=== PATIENT | male | born 1950 | race African-American/Black ===

== ENCOUNTER 2022-07-26 19:03 | Inpatient (IN) | payer OTHER, MEDICARE ==
[~2022-07-26] VITALS: Ht 182.9 cm; Wt 72.1 kg
--- NOTE | 2022-07-26 19:10 | NUR ---
PATIENT HAD WITNESSED SYNCOPAL EPISODE X 30 SECONDS AFTER FAMILY CALLING FROM HOME FOR PATIENT BEING LETHARGIC. GLUCOSE 92 PAPER GOODS MACHINE SET UP OPERATOR, PATIENT A/OX4 UPON ARRIVAL TO ED. 20 G PLACED IN LEFT AC WITH 500ML NS BOLUS PAPER GOODS MACHINE SET UP OPERATOR.
[2022-07-26 19:11] VITALS: BP_SYST 111
--- NOTE | 2022-07-26 19:16 | NUR ---
PATIENT TRANSFERRED TO BED [address] LYONS. REPORT GIVEN TO OSIEL SIMS. PATIENT PLACED ON MONITOR WITHOUT ISSUE.
--- NOTE | 2022-07-26 19:52 | NUR ---
pt aa&ox4. afebrile, nad. denies pain, denies chest pain. able to give hx of DM, HTN, R KIDNEY TRANSPLANT FR 2004. PT DOESNT RECALL HOW HE PASSED OUT. CONNECTED TO POWDER NIPPER. SAFE & HAZARD FREE ENVIRONMENT PROVIDED. FALL PRECAUTIONS IMPLEMENTED. WILL CON'T TO MONITOR.
[2022-07-26 20:18] LABS: BASOPHILS % (AUTO) 0.6 % (0.0-2.0); EOSINOPHILS # (AUTO) 0.1 K/uL (0.0-0.4); EOSINOPHILS % (AUTO) 1.7 % (0.0-4.0); HEMATOCRIT 24.4 % (36-54); LYMPHOCYTES # (AUTO) 0.6 K/uL (1.0-5.5); LYMPHOCYTES % (AUTO) 17.4 % (20.5-51.5); MEAN CORPUSCULAR VOLUME 89 fL (79.0-98.0); MONOCYTES # (AUTO) 0.4 K/uL (0.0-1.0); NEUTROPHILS # (AUTO) 2.2 K/uL (1.8-7.7); NEUTROPHILS % (AUTO) 67.3 % (40.0-70.0); PLATELET COUNT (AUTO) 148 K/uL (130-430); RED BLOOD CELL COUNT(AUTO) 2.74 MIL/uL (4.2-6.2); RED CELL DISTRIBUTION WIDTH 16.6 % (9.0-15.0); WHITE BLOOD COUNT (AUTO) 3.2 K/uL (4.8-10.8)
--- NOTE | 2022-07-26 20:39 | NUR ---
COVID SWAB COLLECTED AND SENT TO LAB.
[2022-07-26 20:43] LABS: ANION GAP 11 (5-15); CALCIUM 8.2 mg/dL (8.4-11.0); CHLORIDE 101 mmol/L (98-107); CREATININE 3.13 mg/dL (0.55-1.30); GLUCOSE 111 mg/dL (70-99); POTASSIUM 3.8 mmol/L (3.5-5.1); UREA NITROGEN, BLOOD 39 mg/dL (8-21)
--- NOTE | 2022-07-26 20:43 | NUR ---
ER at bedside examining patient.
--- NOTE | 2022-07-26 20:43 | NUR ---
# 18 gauge angiocath placed to R IJ BY DR. LYONS. Use of asceptic technique. Opsite placed over site. Blood return noted. Flushed with 10 cc of normal saline. No evidence of infiltration noted. Patient tolerated well.
[2022-07-26] MEDS ORDERED: NACL 0.9% 1,000 ML IV ONE ×2 (20:45→21:15)
[2022-07-26 20:55] LABS: ALANINE AMINOTRANSFERASE 14 U/L (12-78); ALBUMIN 1.6 g/dL (3.4-4.8); ASPARTATE AMINOTRANSFERASE 24 U/L (10-37); TOTAL BILIRUBIN 0.4 mg/dL (0.0-1.0)
--- NOTE | 2022-07-26 21:13 | NUR ---
PER PT'S , PT TOOK N3 NANTIHYPERTENSIVE MEDS AROUND 3PM: METOPROLOL 50MG PO LOSARTAN 30MG PO NIFEDIPINE 30MG PO
--- NOTE | 2022-07-26 21:28 | NUR ---
ADMITTING DOCTOR, DR. HODGSON AT BEDSIDE ASSESSING PATIENT AND SPEAKING TO PATIENT AND FAMILY.
[2022-07-26] MEDS ORDERED: D5NS 1,000 ML IV ONE (21:30)
[2022-07-26] MEDS ORDERED: MUPIROCIN 2% TOPICAL OINTMENT 22 GM NS PRN (21:30)
[2022-07-26] MEDS ORDERED: ACETAMINOPHEN 325 MG TABLET PO PRN (21:30)
[2022-07-26] MEDS ORDERED: DEXTROSE 50% JECT 50 ML DISP.SYRIN IVP PRN (21:30)
[2022-07-26] MEDS ORDERED: MAGNESIUM SULFATE 50 ML IV PRN (21:30)
[2022-07-26] MEDS ORDERED: NOREPINEPHRINE BITARTRATE 4 MG in NS 246 ML IV ONE (21:30)
[2022-07-26] MEDS ORDERED: INSULIN LISPRO SLIDING SCALE 100 UNITS/ML, 3 ML VIAL (humaLOG) SUBCUT PRN (21:30)
[2022-07-26] MEDS ORDERED: ZOLPIDEM TARTRATE 5 MG TABLET PO PRN (21:30)
[2022-07-26] MEDS ORDERED: DOCUSATE SODIUM 100 MG CAPSULE PO PRN (21:30)
[2022-07-26] MEDS ORDERED: LORazepam 2 MG/ML VIAL IVP PRN (21:30)
[2022-07-26] MEDS ORDERED: POTASSIUM CHLORIDE 20 MEQ TAB.PRT.SR PO PRN (21:30)
[2022-07-26] MEDS ORDERED: ONDANSETRON HCL 4 MG/2 ML VIAL IVP PRN (21:30)
[2022-07-26] MEDS ORDERED: MORPHINE 2 MG/ML INJ. SYRINGE IVP PRN ×2 (21:30)
--- NOTE | 2022-07-26 21:30 | NUR ---
[facility] SWAB OBTAINED AND SENT TO LAB LABELED
--- NOTE | 2022-07-26 21:33 | NUR ---
REPORT GIVEN TO OSIEL SIMS
--- NOTE | 2022-07-26 21:35 | NUR ---
Dr. Ball at bedside
[2022-07-26] MEDS ORDERED: METO50TA16 PO (21:38)
[2022-07-26] MEDS ORDERED: NIFE20CA PO (21:38)
[2022-07-26] MEDS ORDERED: LOSA25TA18 PO (21:38)
--- NOTE | 2022-07-26 21:45 | NUR ---
Admit bed requested Patient will be admitted to care of [REMA]. Admitted to [ICU] unit. Diagnosis [HYPOTENSIVE SHOCK] Inpatient (Yes or No) [YES] Observation (Yes or No) [NO] Orientation concerns or request close to nursing station (Yes or No) [NO] Covid Status [PEND] On vent or bipap [NO] Isolation requirements [NO] Needs a sitter [NO] From Home (Yes or if No enter name of facility) [YES] Requires Dialysis (Yes or No) [NO] Med Rec Completed (Yes of No) [NO]
[2022-07-26] MEDS ORDERED: NOREPINEPHRINE 4 MG/4 ML VIAL IV ONE (21:58)
[2022-07-26] MEDS ORDERED: PIPERACILLIN/TAZOBACTAM 2.25 GM in NS 50 ML IV SCH (22:00)
--- NOTE | 2022-07-26 22:00 | NUR ---
Medication reconciliation completed with information provided by PATIENT. Any prior medication reconciliation on file was reviewed and corrected.
--- NOTE | 2022-07-27 00:15 | NUR ---
S/W DR. HODGSON- UPDATED ON PT CONDITION, NO PRESSORS INITIATED, BP'S IN 120'S. TORB TO DOWNGRADE TO TELEMETRY
[2022-07-27] MEDS ORDERED: PIPERACILLIN/TAZOBACTAM 2.25 GM VIAL IV ONE (00:24)
--- NOTE | 2022-07-27 00:31 | NUR ---
Admit bed requested Patient will be admitted to care of [REMA]. Admitted to [TELE] unit. Diagnosis [HYPOTENSIVE SHOCK] Inpatient (Yes or No) [YES] Observation (Yes or No) [NO] Orientation concerns or request close to nursing station (Yes or No) [NO] Covid Status [NEG] On vent or bipap [NO] Isolation requirements [NO] Needs a sitter [NO] From Home (Yes or if No enter name of facility) [YES] Requires Dialysis (Yes or No) [NO] Med Rec Completed (Yes of No) [NO]
[2022-07-27] MEDS: PIPERACILLIN/TAZOBACTAM 2.25 GM in NS 50 ML IV SCH ×3 (00:32→21:59)
--- NOTE | 2022-07-27 01:42 | NUR ---
Transfer to 103B via ACLS protocol. Licensed nurse present. IV present no signs or symptoms of infiltration. REPORT GIVEN TO LACI CARTAGENA
--- NOTE | 2022-07-27 01:45 | NUR ---
ADMISSION NOTE Received patient from ER via gurney. Patient admitted with diagnosis of HYPOTENSION SHOCK. Patient is awake, alert, oriented X 4. Patient oriented to hospital room, call light, toileting, pain management and safety-teach back done. Patient informed that that their room number is 103B. Personal belongings checked and Belongings List documented. Call light within reach.
[2022-07-27 02:59] VITALS: BP_SYST 116
[2022-07-27 06:57] LABS: BASOPHILS % (AUTO) 0.4 % (0.0-2.0); EOSINOPHILS % (AUTO) 0.5 % (0.0-4.0); HEMATOCRIT 24.8 % (36-54); LYMPHOCYTES # (AUTO) 0.4 K/uL (1.0-5.5); LYMPHOCYTES % (AUTO) 13.4 % (20.5-51.5); MEAN CORPUSCULAR VOLUME 90 fL (79.0-98.0); MONOCYTES # (AUTO) 0.3 K/uL (0.0-1.0); MONOCYTES % (AUTO) 10.8 % (1.7-9.3); NEUTROPHILS % (AUTO) 74.9 % (40.0-70.0); PLATELET COUNT (AUTO) 145 K/uL (130-430); RED BLOOD CELL COUNT(AUTO) 2.77 MIL/uL (4.2-6.2); RED CELL DISTRIBUTION WIDTH 16.8 % (9.0-15.0); WHITE BLOOD COUNT (AUTO) 2.7 K/uL (4.8-10.8)
[2022-07-27 07:15] LABS: ANION GAP 12 (5-15); CALCIUM 8.1 mg/dL (8.4-11.0); CHLORIDE 101 mmol/L (98-107); CREATININE 3.04 mg/dL (0.55-1.30); GLUCOSE 141 mg/dL (70-99); POTASSIUM 3.9 mmol/L (3.5-5.1); UREA NITROGEN, BLOOD 39 mg/dL (8-21)
--- NOTE | 2022-07-27 07:20 | NUR ---
OPENING NOTE PT IN BED RESPIRATIONS REGULAR NON-LABORED WITH O2 4L VIA NC. IV RUNNING ORDERED WITH IV SITE REMAIN INTACT AND CLEAN, NO S/S OF IV RELATED COMPLICATION NOTED. DENIES ANY PAIN OR DISCOMFORT. URINAL AT BEDSIDE NOTED. SAFETY PRECAUTION OBSERVED, CALL LIGHT WITHIN REACH. WILL CONTINUE TO MONITOR.
--- NOTE | 2022-07-27 07:30 | NUR ---
THIS RN TO ENDORSE HOME MEDICATIONS THAT WILL BRING TODAY - PATIENT STATES HE USES [facility] IN [facility] ( [facility]). NOTE eMAR FOR IV ABT PLEASE REQUEST FROM PHARMACY.
[2022-07-27 07:47] LABS: PROTHROMBIN TIME 10.4 SECS (9.5-12.5)
[2022-07-27 08:00] VITALS: BP_SYST 142
[2022-07-27] MEDS: HEPARIN SODIUM,PORCINE 5,000 UNITS/ML VIAL SUBCUT SCH ×2 (09:23→21:41)
[2022-07-27] MEDS ORDERED: ATORVASTATIN 20 MG TABLET PO ONE (09:30)
[2022-07-27] MEDS ORDERED: CITALOPRAM HYDROBROMIDE 20 MG TABLET PO ONE (09:30)
[2022-07-27] MEDS ORDERED: TACROLIMUS ANHYDROUS 1 MG CAPSULE (PROGRAF) PO ONE (09:30)
[2022-07-27] MEDS ORDERED: mycophenolate mofetiL 250 MG CAPSULE PO ONE (09:30)
--- NOTE | 2022-07-27 09:30 | NUR ---
HOME MEDICATION DR HODGSON AND HIS STUDENTS WERE ABLE TO GET HOLD OF , RECEIVED THE PT'S HOME MEDICATION. RECEIVED NEW MEDICATION ORDER.
[2022-07-27 09:39] LABS: ALBUMIN 1.5 g/dL (3.4-4.8); BILIRUBIN,DIRECT 0.1 mg/dL (0.0-0.3); THYROID STIMULATING HORMONE 6.31 uIu/mL (0.36-3.74); TOTAL BILIRUBIN 0.3 mg/dL (0.0-1.0)
--- NOTE | 2022-07-27 10:00 | NUR ---
AMBULATION PT AMBULATES WITH ASSISTANCE TO BATHROOM. Addendum: 07/27/22 at 1125 by Julissa Urbano RN DISREGARD CHARLES NOTES. WRONG PT.
--- NOTE | 2022-07-27 11:30 | NUR ---
REMOVED RIJ REMOVED RIJ DUE TO LEAKING. CATHETER REMOVED, NO ACTIVE BLEEDING NOTED. COVERED WITH DRY DRESSING. PT DENIES ANY PAIN OR DISCOMFORT AT THE SITE. WILL CONTINUE TO MONITOR.
[2022-07-27 11:37] VITALS: BP_SYST 153
--- NOTE | 2022-07-27 14:03 | NUR ---
AMBULATION WITH ASSISTANCE PT AMBULATED WITH NURSE'S ASSISTANCE TO BATHROOM.
[2022-07-27 14:41] VITALS: BP_SYST 117; BP_SYST 132; BP_SYST 145
--- NOTE | 2022-07-27 14:45 | NUR ---
PT FELL PT HAS ASSISTED FALL AT BATHROOM. NO BLEEDING NO INJURIES NOTED. PT DENIES ANY PAIN OR DISCOMFORT NOTED. PT'S WAS AT THE ROOM. DR. REMA CORTEZ. Addendum: 07/27/22 at 1838 by Julissa Urbano RN SEE POST FALL ASSESSMENT
--- NOTE | 2022-07-27 15:15 | NUR ---
RECEIVED NEW ORDER FROM DR. HODGSON.
[2022-07-27 15:22] VITALS: BP_SYST 111
--- NOTE | 2022-07-27 16:00 | NUR ---
WENT TO OR PT WENT TO OR FOR SURGERY WITH Addendum: 07/27/22 at 1738 by Julissa Urbano RN DISREGARD PREVIOUS NOTE. WRONG PT
--- NOTE | 2022-07-27 16:00 | NUR ---
NOTES PT IN BED, RESTING WITH BREATHING EVEN AND UNLABORED. DENIES ANY PAIN OR DISCOMFORT. IV REMAIN PATENT AND INTACT. BED IS AT LOW AND LOCKED. NON-SKIDDED SOCKS ON. CALL LIGHT WITHIN REACH. SAFETY PRECAUTION OBSERVED.
--- NOTE | 2022-07-27 18:40 | NUR ---
CLOSING NOTE PT IN BED BREATHING EVEN AND NON-LABORED. DENIES ANY PAIN OR DISCOMFORT. IV SITE KEPT PATENT. NO S/S INFILTRATION OR INFECTION NOTED. BED IS LOCKED AND AT LOWEST POSITION. ENCOURAGED TO USE CALL LIGHT FOR ASSISTANCE. SAFETY PRECAUTION IN PLACED.
[2022-07-27 20:00] VITALS: BP_SYST 136
[2022-07-27] MEDS: TACROLIMUS ANHYDROUS 1 MG CAPSULE (PROGRAF) PO SCH (21:38)
[2022-07-27] MEDS: mycophenolate mofetiL 250 MG CAPSULE PO SCH (21:39)
[2022-07-28 00:33] VITALS: BP_SYST 145
--- NOTE | 2022-07-28 06:00 | NUR ---
--PT CONT. TO BE A/OX4. IV I/P VIA LEFT FA H.L. PT HAS BEEN ON BEDREST. PT DENIES ANY PAIN. PT ALSO DENIES ANY DIZZINESS. PT HAS BEEN SLEEPING OFF AND ON. PT HAD ELEVATED TROP. LEVEL OF 25,000. (CARDIO MD INFORMED)-NO NEW ORDERS. PT HAS BEEN IN A.FLUTTER WITH OCCASS. PVC. PT HAS ATTEMPTED TO VOID THROUGH-OUT THE NIGHT BUT HAS NOT BEEN ABLE TO VOID. INFORMED AND STATED TO CONTACT THE RENALMD. DR. ROB CONTACT AND HAS BEEN IN THIS MORNING TO EVAL PT. BLADDER SCAN ORDERED WITH PARAMETER FOR F/C IF URINE IS >200CC. PT'S BS THIS AM IS 78. PT GIVEN O.J. PT ENDORSED TO OSIEL STEWART IN STABLE BUT GUARDED COND. BRAYAN CARTAGENA
[2022-07-28 07:40] VITALS: BP_SYST 149
--- NOTE | 2022-07-28 07:40 | NUR ---
OPEN NOTE Received report from nightshift nurse. Patient is laying in bed resting. Patient A/O x 4, wolof speaking. Per patient at this time no pain, no sob, no distress. IV to RAC 20 g patent on SL. Patient on Room air saturations at 99%. Will monitor UA output. All needs met at this time. Safety checks in place, bed is locked in lowest position, will continue to monitor.
[2022-07-28 07:43] LABS: BASOPHILS % (AUTO) 0.5 % (0.0-2.0); EOSINOPHILS # (AUTO) 0.1 K/uL (0.0-0.4); EOSINOPHILS % (AUTO) 3.6 % (0.0-4.0); LYMPHOCYTES # (AUTO) 0.5 K/uL (1.0-5.5); LYMPHOCYTES % (AUTO) 19.2 % (20.5-51.5); MEAN CORPUSCULAR VOLUME 89 fL (79.0-98.0); MONOCYTES # (AUTO) 0.4 K/uL (0.0-1.0); MONOCYTES % (AUTO) 15.6 % (1.7-9.3); NEUTROPHILS # (AUTO) 1.6 K/uL (1.8-7.7); NEUTROPHILS % (AUTO) 61.1 % (40.0-70.0); PLATELET COUNT (AUTO) 120 K/uL (130-430); RED BLOOD CELL COUNT(AUTO) 2.44 MIL/uL (4.2-6.2); RED CELL DISTRIBUTION WIDTH 16.8 % (9.0-15.0); WHITE BLOOD COUNT (AUTO) 2.6 K/uL (4.8-10.8)
[2022-07-28] MEDS ORDERED: NACL 0.9% 1,000 ML IV SCH (08:00)
[2022-07-28 08:27] LABS: ANION GAP 12 (5-15); CALCIUM 7.8 mg/dL (8.4-11.0); CHLORIDE 101 mmol/L (98-107); CREATININE 3.11 mg/dL (0.55-1.30); GLUCOSE 81 mg/dL (70-99); POTASSIUM 3.8 mmol/L (3.5-5.1); UREA NITROGEN, BLOOD 38 mg/dL (8-21)
[2022-07-28] MEDS: CITALOPRAM HYDROBROMIDE 20 MG TABLET PO SCH (09:09)
[2022-07-28] MEDS: ATORVASTATIN 20 MG TABLET PO SCH (09:10)
[2022-07-28] MEDS: TACROLIMUS ANHYDROUS 1 MG CAPSULE (PROGRAF) PO SCH ×2 (09:11→21:43)
[2022-07-28] MEDS: mycophenolate mofetiL 250 MG CAPSULE PO SCH ×2 (09:12→21:43)
[2022-07-28] MEDS: HEPARIN SODIUM,PORCINE 5,000 UNITS/ML VIAL SUBCUT SCH ×2 (09:14→22:04)
--- NOTE | 2022-07-28 09:43 | NUR ---
CONSULTATION PAGED/CALLED Reason for Consultation: int dizziness Person Who was Notified: thong Consulting Physician: sunshine chan Ordering Physician: gorge sanchez
[2022-07-28] MEDS ORDERED: CARVEDILOL 6.25 MG TABLET (COREG) PO ONE (10:00)
[2022-07-28 10:21] LABS: HEMATOCRIT 21.7 % (36-54)
--- NOTE | 2022-07-28 10:40 | NUR ---
MD CORTEZ Spoke with MD Ball regarding Hematcrit. New orders given. Also stated that if Hemoglobin comes back below 7 to give 1 unit of blood. Awaiting Hemoglobin level.
[2022-07-28] MEDS: D5/0.45 NS 1,000 ML IV SCH (11:23)
[2022-07-28 11:26] VITALS: BP_SYST 138
[2022-07-28 11:34] LABS: TOTAL IRON BIND. CAPACITY 108 ug/dL (250-450)
--- NOTE | 2022-07-28 12:05 | NUR ---
PATIENT ROUNDS Patient is laying in bed resting. No pain, no sob, no distress. Urinated 150ccs before lunch. Will do bladder scan after patient finishes lunch. All needs met at this time. Safety checks in place, bed is locked in lowest position, will continue to monitor.
--- NOTE | 2022-07-28 12:36 | NUR ---
PT ATTEMPTED TWO TIMES TO INITIATE TREATMENT. PATIENT DECLINED, FIRST TIME STATING HE HAS BUSINESS TO ATTEND TO ON THE PHONE AND REQUESTING PT TO RETURN, SECOND TIME STATING HE IS TOO TIRED/FATIGUED AND JUST MEDICATED
--- NOTE | 2022-07-28 13:00 | NUR ---
Bladder Scan Scanned patient and noted that he had less then 80cc of urine in bladder.
--- NOTE | 2022-07-28 14:01 | NUR ---
MRI MRI machine not working properly. automotive exhaust emissions technician will attempt again tomorrow. Patient was made aware.
[2022-07-28] MEDS: PIPERACILLIN/TAZOBACTAM 2.25 GM in NS 50 ML IV SCH ×3 (14:49→22:07)
--- NOTE | 2022-07-28 15:00 | NUR ---
MRI MRI will be able to be done today. Patient was picked up and sent over to Radiology.
[2022-07-28 15:28] VITALS: BP_SYST 149
--- NOTE | 2022-07-28 15:45 | NUR ---
PATIENT ROUNDS Patient is back from MRI. Placed him back in bed and reconnected him to tele-monitor. No pain, no sob, no distress. Urinated 100ccs of urine again. All needs met at this time. Safety checks in place, bed is locked in lowest position, will continue to monitor.
--- NOTE | 2022-07-28 18:32 | NUR ---
CLOSING NOTE Patient is laying in eating dinner. Patient A/O x 4, [place]er speaking. No pain, no sob, no distress. IV to RAC 20 g patent on infusion pump. Patient on Room air saturations at 99%. Bladder scan q6 hours, patient has been urinating every 2-3 hours 100-200cc of yellow urine in urinal. All needs met at this time. Safety checks in place, bed is locked in lowest position, will endorse to nightshift nurse.
[2022-07-28 20:00] VITALS: BP_SYST 163
[2022-07-28] MEDS ORDERED: CARVEDILOL 6.25 MG TABLET (COREG) PO SCH (21:00)
[2022-07-29 04:00] VITALS: BP_SYST 147
[2022-07-29] MEDS: PIPERACILLIN/TAZOBACTAM 2.25 GM in NS 50 ML IV SCH ×3 (06:45→21:53)
[2022-07-29] MEDS: D5/0.45 NS 1,000 ML IV SCH ×2 (06:47→23:09)
--- NOTE | 2022-07-29 07:00 | NUR ---
BLADDER SCAN NOT NEEDED PM Patient did not have a bladder scan during the table games shift manager. Pt had a total input of 835 mL and total output of 450 mL. Pt stated no urge or difficulty urinating and sleep without difficulty throughout the night.
[2022-07-29 07:28] LABS: ALANINE AMINOTRANSFERASE 14 U/L (12-78); ALBUMIN 1.1 g/dL (3.4-4.8); ANION GAP 9 (5-15); ASPARTATE AMINOTRANSFERASE 34 U/L (10-37); CALCIUM 7.6 mg/dL (8.4-11.0); CHLORIDE 99 mmol/L (98-107); CREATININE 3.07 mg/dL (0.55-1.30); GLUCOSE 136 mg/dL (70-99); TOTAL BILIRUBIN 0.3 mg/dL (0.0-1.0); UREA NITROGEN, BLOOD 36 mg/dL (8-21)
[2022-07-29 07:30] VITALS: BP_SYST 137
--- NOTE | 2022-07-29 07:30 | NUR ---
OPEN NOTE Received report from nightshift nurse. Patient is laying in bed resting. Patient A/O x 4, Malay speaking. Per patient at this time no pain, no sob, no distress. IV to RAC 20 g patent on SL. Patient on Room air saturations at 99%. Will monitor UA output and do bladder scan. All needs met at this time. Safety checks in place, bed is locked in lowest position, will continue to monitor.
[2022-07-29 08:32] LABS: BASOPHILS % (AUTO) 0.1 % (0.0-2.0); EOSINOPHILS # (AUTO) 0.1 K/uL (0.0-0.4); EOSINOPHILS % (AUTO) 4.2 % (0.0-4.0); LYMPHOCYTES # (AUTO) 0.5 K/uL (1.0-5.5); MEAN CORPUSCULAR VOLUME 88 fL (79.0-98.0); MONOCYTES # (AUTO) 0.4 K/uL (0.0-1.0); NEUTROPHILS # (AUTO) 1.6 K/uL (1.8-7.7); NEUTROPHILS % (AUTO) 59.7 % (40.0-70.0); PLATELET COUNT (AUTO) 109 K/uL (130-430); RED BLOOD CELL COUNT(AUTO) 2.21 MIL/uL (4.2-6.2); RED CELL DISTRIBUTION WIDTH 16.7 % (9.0-15.0); WHITE BLOOD COUNT (AUTO) 2.7 K/uL (4.8-10.8)
[2022-07-29 08:59] LABS: HEMATOCRIT 19.6 % (36-54)
[2022-07-29] MEDS: CARVEDILOL 12.5 MG TABLET (COREG) PO SCH ×2 (09:14→21:54)
[2022-07-29] MEDS: CITALOPRAM HYDROBROMIDE 20 MG TABLET PO SCH (09:15)
[2022-07-29] MEDS: TACROLIMUS ANHYDROUS 1 MG CAPSULE (PROGRAF) PO SCH ×2 (09:15→21:54)
[2022-07-29] MEDS: ATORVASTATIN 20 MG TABLET PO SCH (09:15)
[2022-07-29] MEDS: mycophenolate mofetiL 250 MG CAPSULE PO SCH ×2 (09:15→21:54)
--- NOTE | 2022-07-29 09:15 | NUR ---
CONSULTATION PAGED/CALLED Reason for Consultation: [] severe carotid stenosis Person Who was Notified: [] RAFITA/VERO Consulting Physician: [] DR KNUTSON, N Carrot Buncher Specialty: [] VASCULAR Ordering Physician: [] DR HODGSON
[2022-07-29] MEDS: HEPARIN SODIUM,PORCINE 5,000 UNITS/ML VIAL SUBCUT SCH ×2 (09:18→21:56)
[2022-07-29 10:52] LABS: BILIRUBIN,URINE NEGATIVE (NEGATIVE); BLOOD, URINE 2+ (NEGATIVE); CLARITY/URINE CLEAR (CLEAR); COLOR,URINE YELLOW (YELLOW); GLUCOSE,URINE NEGATIVE (NEGATIVE); KETONES,URINE NEGATIVE (NEGATIVE); LEUKOCYTE ESTERASE ,URINE NEGATIVE (NEGATIVE); NITRITE, URINE NEGATIVE (NEGATIVE); PROTEIN URINE 2+ (NEGATIVE); UROBILINOGEN,URINE 0.2 (0.2-1.0)
--- NOTE | 2022-07-29 11:39 | NUR ---
Made a F/U call to VASCULAR MD DR KNUTSON. Spoke to Tabitha.
[2022-07-29 11:40] VITALS: BP_SYST 143
--- NOTE | 2022-07-29 11:40 | NUR ---
Discharge Planning: DCP faxed pt referral to [facility] [phone] PATRICKP to follow up. Addendum: 07/29/22 at 1240 by Kaylin Carrion DP patient accepted to [facility] [phone] RM 15A DCP made CM aware.
--- NOTE | 2022-07-29 12:00 | NUR ---
PATIENT ROUNDS Patient is laying in bed resting. No pain, no sob, no distress. Urinated 200ccs before lunch. All needs met at this time. Safety checks in place, bed is locked in lowest position, will continue to monitor.
[2022-07-29 12:14] LABS: WBC,URINE 0-3 /HPF (0-3)
[2022-07-29 12:15] LABS: BACTERIA,URINE FEW /HPF (None Seen)
--- NOTE | 2022-07-29 12:30 | NUR ---
DISCHARGE PLANNING Order for dc planning for snf. Called & spoke with and states agrees if pt agrees, will look up SNF's, informed had choices and states will look up Medicare.gov. Spoke with pt at bedside aware of plan for SNF has discussed with MD and . Is still contemplating whether agrees with SNF or not but if does then #1 choice is [facility]. States is waiting to speak with Cardiovascular Surgeon before decides. Would like someone from [facility] to call & speak with . Informed Carolin at [facility] to call & speak with . Per dc financial planner, pt accepted at [facility].
--- NOTE | 2022-07-29 14:22 | NUR ---
DR KNUTSON S/W DR KNUTSON . PER MD, HE WILL COME SEE PATIENT TODAY OR TOMORROW
--- NOTE | 2022-07-29 15:19 | NUR ---
Blood Transfusion Consent Patient stated he would like to speak to MD Medina Prior to signing the consent of the blood transfusion. Dr Ball was paged and awaiting his call back.
[2022-07-29 15:28] VITALS: BP_SYST 147
--- NOTE | 2022-07-29 16:10 | NUR ---
PATIENT ROUNDS Patient is laying in bed resting. No pain, no sob, no distress. Urinated 100ccs before lunch. All needs met at this time. Safety checks in place, bed is locked in lowest position, will continue to monitor
--- NOTE | 2022-07-29 17:27 | NUR ---
BLOOD TRANSFUSION CONSENT Spoke with patient again regarding consent and he stated he is not ready to consent. He stated he will wait to discuss with MD.
--- NOTE | 2022-07-29 17:30 | NUR ---
Dietitian Recommendations * CCHO, Renal diet, Nepro BID (ONS yields 840 kcal/day, 38 gm protein/day) * Encourage increase PO intakes * RD provided diabetic and renal diet education LP, MS, RD Please refer to Nutrition Assessment for details. Addendum: 07/30/22 at [address] Amended: Links added.
--- NOTE | 2022-07-29 18:52 | NUR ---
CLOSING NOTE Patient is laying in eating dinner. Patient A/O x 4, Burundian speaking. No pain, no sob, no distress. IV to RAC 20 g patent on infusion pump. Patient on Room air saturations at 99%. Still refusing blood transfusion consent until MD speaks to him. MD Paged. patient has been urinating every 2-3 hours 100-200cc of yellow urine in urinal. All needs met at this time. Safety checks in place, bed is locked in lowest position, will endorse to nightshift nurse.
--- NOTE | 2022-07-29 19:06 | NUR ---
Call from Received a call from MD Mattson to inform me he will see patient tomorrow in the am. Report given to patient.
[2022-07-29 19:20] VITALS: BP_SYST 160
--- NOTE | 2022-07-29 19:20 | NUR ---
PM ASSESSMENT; -Pt is a/ox 4, resting in bed comfortably. Pt denies any chest pain,pain,sob,or any acute distress. Discussed poc,all safety measures, pt verbalized understanding with good return demonstration of how to use call light for assistance.Bed alarmed, side rails x3, call light w/inreach. Fall precaution in place.Cont to monitor pt.
--- NOTE | 2022-07-29 22:05 | NUR ---
ROUNDS; -Pt awakes,resting in bed comfortably. Gave routine meds, pt tolerated well. No s/s any acute distress noted. IVF infusing well, no s/s any infiltration noted. Call light w/in reach. Cont to monitor pt.
[2022-07-29] MEDS: FERROUS GLUCONATE 324 MG TABLET PO SCH (23:09)
--- NOTE | 2022-07-30 01:06 | NUR ---
ROUNDS; -Pt is asleep with sheet covered his face. No s/s any acute distress noted. IVF infusing well, no s/s any infiltration noted. Call light w/in reach. Cont to monitor pt.
[2022-07-30 03:05] VITALS: BP_SYST 146
[2022-07-30] MEDS: PIPERACILLIN/TAZOBACTAM 2.25 GM in NS 50 ML IV SCH (06:09)
--- NOTE | 2022-07-30 07:15 | NUR ---
CLOSING NOTES; Pt is resting in bed comfortably. Pt denies any chest pain,pain,sob,or any acute distress. IVF infusing well, IV site patent drsg cdi. Bed alarmed, side rails x3, call light w/in reach. Fall precaution in place. Will endorse to next nurse to cont care.
--- NOTE | 2022-07-30 07:23 | NUR ---
PHYSICAL THERAPY CO-SIGN The Physical Therapy Progress Notes documented by Motor Vehicle Or Caravan Salesperson have been reviewed. Reviewed/Co-Signed by: Patricio Ambrose Documentation Done by: KRISS SLOAN PTA Addendum: 07/30/22 at 0723 by Patricio Ambrose PT Amended: Links added.
--- NOTE | 2022-07-30 07:30 | NUR ---
rn opening note report was endorsed by night nurse. patient appears to be resting with blanket covering his face, visible breathing. patient shows no signs of any distress, no other needs at this time.
[2022-07-30 08:00] VITALS: BP_SYST 110
[2022-07-30 08:13] LABS: BASOPHILS % (AUTO) 0.5 % (0.0-2.0); EOSINOPHILS # (AUTO) 0.1 K/uL (0.0-0.4); EOSINOPHILS % (AUTO) 5.1 % (0.0-4.0); LYMPHOCYTES # (AUTO) 0.6 K/uL (1.0-5.5); LYMPHOCYTES % (AUTO) 26.5 % (20.5-51.5); MEAN CORPUSCULAR VOLUME 89 fL (79.0-98.0); MONOCYTES # (AUTO) 0.4 K/uL (0.0-1.0); MONOCYTES % (AUTO) 18.1 % (1.7-9.3); NEUTROPHILS # (AUTO) 1.1 K/uL (1.8-7.7); NEUTROPHILS % (AUTO) 49.8 % (40.0-70.0); PLATELET COUNT (AUTO) 101 K/uL (130-430); RED BLOOD CELL COUNT(AUTO) 2.13 MIL/uL (4.2-6.2); RED CELL DISTRIBUTION WIDTH 16.2 % (9.0-15.0); WHITE BLOOD COUNT (AUTO) 2.2 K/uL (4.8-10.8)
[2022-07-30 08:15] LABS: ANION GAP 8 (5-15); CALCIUM 7.7 mg/dL (8.4-11.0); CHLORIDE 100 mmol/L (98-107); CREATININE 2.97 mg/dL (0.55-1.30); GLUCOSE 102 mg/dL (70-99); POTASSIUM 3.9 mmol/L (3.5-5.1); UREA NITROGEN, BLOOD 33 mg/dL (8-21)
[2022-07-30] MEDS: CITALOPRAM HYDROBROMIDE 20 MG TABLET PO SCH (09:16)
[2022-07-30] MEDS: ATORVASTATIN 20 MG TABLET PO SCH (09:16)
[2022-07-30] MEDS: CARVEDILOL 12.5 MG TABLET (COREG) PO SCH ×2 (09:17→21:06)
[2022-07-30] MEDS: mycophenolate mofetiL 250 MG CAPSULE PO SCH ×2 (09:17→21:06)
[2022-07-30] MEDS: TACROLIMUS ANHYDROUS 1 MG CAPSULE (PROGRAF) PO SCH ×2 (09:18→21:06)
[2022-07-30] MEDS: HEPARIN SODIUM,PORCINE 5,000 UNITS/ML VIAL SUBCUT SCH (09:19)
--- NOTE | 2022-07-30 09:40 | NUR ---
MEDICATION PATIENTS SCHEDULED MEDICATION GIVEN PER ORDER.PATIENT HAD AT BEDSIDE. PATIENT TOLERATED MEDICATION WELL.PATIENT'S URINAL EMPTIED. PATIENT BLOOD CONSENT GIVEN TO LAB WILL CALL WHEN BLOOD IS READY. PATIENT EDUCATED BOBBIN STRIPPER LIGHT FOR ASSISTANCE. CALL LIGHT IS WITH HIM. NO OTHER NEEDS AT THIS TIME.
[2022-07-30] MEDS: FERROUS GLUCONATE 324 MG TABLET PO SCH ×2 (10:06→21:06)
[2022-07-30 11:42] VITALS: BP_SYST 152
--- NOTE | 2022-07-30 12:06 | NUR ---
ACCU CHECK NO COVERAGE NEEDED.PATIENT PROVIDED WITH LUNCH.NO COMPLAINTS AT THIS TIME.CALL LIGHT IS WITH HIM EDUCATED TO USE FOR ASSISTANCE.
[2022-07-30] MEDS ORDERED: cefTRIAXone 1 GM IVPB PREMIX 50 ML IV SCH (14:00)
--- NOTE | 2022-07-30 14:39 | NUR ---
MEDICATION PATIENTS SCHEDULED MEDICATION GIVEN PER ORDER NO OTHER NEEDS AT THIS TIME . CALL LIGHT IS WITH HIM EDUCATED TO USE FOR ASSISTANCE.
--- NOTE | 2022-07-30 14:42 | NUR ---
NO REACTION FROM BLOOD NOTED, OR REPORTED BY PATIENT. PATIENTS ACCU CHECK DONE NO COVERAGE NEEDED.
--- NOTE | 2022-07-30 16:14 | NUR ---
CM: Ambulance: booked with [facility]/ [facility] # [phone] for pickling drum operator between 2300-mn. RN Dari made aware. DC package placed in nursing unit.
--- NOTE | 2022-07-30 16:25 | NUR ---
BT INITIATION: Consent signed per PATIENT agreeing to administration of blood. Blood has been type and crossmatched. Blood sent from blood bank. Information on unit of blood checked against patient wristband at bedside by two nurses. All information matches. Patient or responsible libertarian informed of potential complications associated with blood transfusion. Informed of possible transfusion reaction symptoms. Aware of need to notify nurse at once of itching, shortness of breath, flushing, feeling of impending doom, or other symptoms not previously present. Vital signs taken within 5 minutes prior to initiation of transfusion. RN will remain with patient for first 15 minutes of transfusion at which time vital signs will be re-assessed.
[2022-07-30 16:49] VITALS: BP_SYST 153
[2022-07-30] MEDS ORDERED: MYCO500T PO (18:04)
[2022-07-30] MEDS ORDERED: TACR1CAP2 PO (18:05)
--- NOTE | 2022-07-30 19:22 | NUR ---
rn closing note report was endorsed to night nurse dio. patient is awake and alert sitting up in bed. patient has no complaints at this time. no reports of reaction of blood. blood is still transfusing. Patient educated manager regional light for assistance. call light is with him. no other needs at this time.
[2022-07-30 19:55] VITALS: BP_SYST 154
--- NOTE | 2022-07-30 19:55 | NUR ---
PM ASSESSMENT; 1 UNIT OF PRBC COMPLETED -Pt is a/ox 4, resting in bed comfortably. Pt denies any chest pain,pain,sob,or any acute distress. NO s/s any complication or rxn noted. VS 97.5,75,18,154/89,p7uwr=120% r/a. Discussed poc,all safety measures, pt verbalized understanding with good return demonstration of how to use call light for assistance.Bed alarmed, side rails x3, call light w/in reach. Fall precaution in place. Pt will be picker and packer around [phone] tonight picker and packer by [facility] service service to [facility] and Karin informed and awared earlier prior shift started. Cont to monitor pt.
--- NOTE | 2022-07-30 20:54 | NUR ---
[facility] RECIEVED CALL FROM [facility]PATCH AND THEY SAID THEY ARE UNABLE TO ACCOMADATE TONIGHT GREASER HELPER AND DONT KNOW WHAT TIME IT WOULD BE TOMMOROW .
--- NOTE | 2022-07-30 20:56 | NUR ---
[facility] COPY EDITOR IS SET 2300 GOING TO [facility] ROOM 15A( PER TOBACCO BALER NOTES)
--- NOTE | 2022-07-30 21:11 | NUR ---
NOTES; BLOOD BUNPS=874, PT REFUSED [facility] COVERAGE -NOTIFIED PT THAT AMBULANCE SERV WILL AIR SEALING TECHNICIAN PT AROUND 2300, PT VERBALIZED UNDERSTANDING.
[2022-07-30 22:32] VITALS: BP_SYST 150
--- NOTE | 2022-07-30 22:45 | NUR ---
[facility] CALLED TO FOLLOW UP AND TO SEE IF THEY ARE RUNNING ON TIME AND MARYANN AT [facility] SAID THAT THEY WILL BE HERE MOST LIKELY AROUND 0000 . DUE TO JA AT [facility] SAID THAT THEY NEED PT THERE BEFORE MIDNIGHT WILL RESCHEDULE. CANCELED CALL WITH [facility] SINCE THEY DONT HAVE THING AVAILABLE
--- NOTE | 2022-07-30 22:47 | NUR ---
NOTES; -REPORT GIVEN TO AJ-RN AT [facility]. AJ STATED THAT PT IS ASSIGNED TO ROOM 9B.
--- NOTE | 2022-07-30 22:59 | NUR ---
NOTES; -AMBULANCE SERVICE COMPLICATION, THIS [facility] SERVICE IS UNABLE TO RETAIL PHARMACIST PT AROUND 2300 D/T STUCK AT ER SITUATION, PT IS INFORMED AND ACKNOWLEDGED, HE VERBALIZED UNDERSTANDING. ARRANGED [facility] AMBULANCE SERVICE SCHEDULED AT 1100 ON 07/31/22.
--- NOTE | 2022-07-30 23:07 | NUR ---
[facility] SET UP TRANSPORT FOR 11AM GOING TO [facility]
--- NOTE | 2022-07-30 23:11 | NUR ---
NOTES; -CALLED TO ZAIRA MARINELLI INFORMED AJ REGARDING PT WILL ARRIVE AT 11:00 MORNING INSTEAD TONIGHT.
[2022-07-31 01:00] VITALS: BP_SYST 160
--- NOTE | 2022-07-31 03:29 | NUR ---
ROUNDS; -Pt is asleep. No s/s any acute distress noted. Bed alarmed, side rails x 3, call light w/in reach. Cont to monitor pt.
[2022-07-31] MEDS: D5/0.45 NS 1,000 ML IV SCH (06:17)
--- NOTE | 2022-07-31 06:52 | NUR ---
CLOSING NOTES; -Pt is a/ox 4, resting in bed comfortably. Pt denies any chest pain,pain,sob,or any acute distress. Pt stated, " last bowel movt was on 07/28/22." Bed alarmed, side rails x3, call light w/in reach. Fall precaution in place. Pt will be fiber picker by [facility] service to [facility] around 1100 this noon and family notified. will endorse to next nurse to cont care.
[2022-07-31 07:13] LABS: BASOPHILS % (AUTO) 0.5 % (0.0-2.0); EOSINOPHILS # (AUTO) 0.1 K/uL (0.0-0.4); LYMPHOCYTES # (AUTO) 0.5 K/uL (1.0-5.5); MEAN CORPUSCULAR VOLUME 88 fL (79.0-98.0); MONOCYTES # (AUTO) 0.4 K/uL (0.0-1.0); MONOCYTES % (AUTO) 16.4 % (1.7-9.3); NEUTROPHILS # (AUTO) 1.6 K/uL (1.8-7.7); NEUTROPHILS % (AUTO) 59.1 % (40.0-70.0); PLATELET COUNT (AUTO) 110 K/uL (130-430); RED BLOOD CELL COUNT(AUTO) 2.73 MIL/uL (4.2-6.2); WHITE BLOOD COUNT (AUTO) 2.6 K/uL (4.8-10.8)
--- NOTE | 2022-07-31 07:30 | NUR ---
Morning Rounds: Patient sleeping during rounds. Iv fluids running at left ac ,intact. Call light with in reach. Bed locked at lowest position. Dc transfer to snf today as ordered.
[2022-07-31 07:33] LABS: HEMATOCRIT 24.1 % (36-54)
[2022-07-31 07:58] LABS: ANION GAP 8 (5-15); CALCIUM 7.9 mg/dL (8.4-11.0); CHLORIDE 99 mmol/L (98-107); CREATININE 2.88 mg/dL (0.55-1.30); GLUCOSE 77 mg/dL (70-99); POTASSIUM 3.9 mmol/L (3.5-5.1); UREA NITROGEN, BLOOD 30 mg/dL (8-21)
[2022-07-31 08:00] VITALS: BP_SYST 137
[2022-07-31] MEDS: CITALOPRAM HYDROBROMIDE 20 MG TABLET PO SCH (09:16)
[2022-07-31] MEDS: FERROUS GLUCONATE 324 MG TABLET PO SCH (09:16)
[2022-07-31] MEDS: ATORVASTATIN 20 MG TABLET PO SCH (09:16)
[2022-07-31] MEDS: CARVEDILOL 12.5 MG TABLET (COREG) PO SCH (09:16)
[2022-07-31] MEDS: mycophenolate mofetiL 250 MG CAPSULE PO SCH (09:17)
[2022-07-31] MEDS: TACROLIMUS ANHYDROUS 1 MG CAPSULE (PROGRAF) PO SCH (09:17)
[2022-07-31 10:22] VITALS: BP_SYST 137
--- NOTE | 2022-07-31 10:35 | NUR ---
Report Notes: Spoke with Lucía Peguero from [facility].
--- NOTE | 2022-07-31 11:00 | NUR ---
Ambulance delayed: Spoke with [facility] dispatcher Mila ,transport ambulance with be delayed in 45mins due to high saturation.
--- NOTE | 2022-07-31 12:50 | NUR ---
DC NOTES: TRANSFER PACKETS GIVEN TO EMT [facility] UNIT 35.PERSONAL BELONGINGS SEND WITH THE PATIENT. IV KEPT FOR CONTINUITY OF ANTIBIOTICS ENDORSED BY NIGHT NURSE. PATIENT WAS TRANSPORTED BY [facility] AMBULANCE UNIT 35,TO SNF IN STABLE CONDITION.
--- NOTE | 2022-08-02 07:37 | NUR ---
PHYSICAL THERAPY CO-SIGN The Physical Therapy Progress Notes documented by Bank Teller Machine Mechanic have been reviewed. Reviewed/Co-Signed by: Patricio Ambrose Documentation Done by: KRISS SLOAN PTA
== END 2022-07-31 23:20 | DRG 177 ==
LOC: SED 19:03 → SIC 21:24 → SMU 07-27 02:37 → STU 07-27 06:25
PROVIDERS: ADMIT General Practice; ATTEND General Practice
PROC: 30233N1 Transfusion of Nonautologous Red Blood Cells into Peripheral Vein, Percutaneous Approach (ICD-10-PCS; principal; 2022-07-30)
DX: J69.0 Pneumonitis due to inhalation of food and vomit (principal); E43 Unspecified severe protein-calorie malnutrition; I21.A1 Myocardial infarction type 2; N17.0 Acute kidney failure with tubular necrosis; R57.8 Other shock; E87.1 Hypo-osmolality and hyponatremia; I13.0 Hypertensive heart and chronic kidney disease with heart failure and stage 1 through stage 4 chronic kidney disease, or unspecified chronic kidney disease; G90.8 Other disorders of autonomic nervous system; E78.5 Hyperlipidemia, unspecified; E11.649 Type 2 diabetes mellitus with hypoglycemia without coma; I49.9 Cardiac arrhythmia, unspecified; E11.42 Type 2 diabetes mellitus with diabetic polyneuropathy; R26.9 Unspecified abnormalities of gait and mobility; D50.9 Iron deficiency anemia, unspecified; Z20.822 Contact with and (suspected) exposure to COVID-19; M72.0 Palmar fascial fibromatosis [Dupuytren]; F17.210 Nicotine dependence, cigarettes, uncomplicated; I50.9 Heart failure, unspecified; N18.9 Chronic kidney disease, unspecified; E11.22 Type 2 diabetes mellitus with diabetic chronic kidney disease; Z68.21 Body mass index [BMI] 21.0-21.9, adult; Z99.2 Dependence on renal dialysis; Z92.21 Personal history of antineoplastic chemotherapy; Z86.16 Personal history of COVID-19; Z85.818 Personal history of malignant neoplasm of other sites of lip, oral cavity, and pharynx
CPT/HCPCS: 36415; 70450-TC; 70551; 71045; 76376; 76770; 80048; 80053; 80061; 80076; 81000; 82550; 82607; 82962; 83036; 83540; 83550; 83605; 83735; 83880; 84443; 84484; 85025; 85610-TC; 86886; 86900; 86901; 86920; 87081; 87086; 93005; 93306; 93880; 96360; 96361; 97112-GP; 97116-GP; 97530-GP; 99291; G0378; J0696; J1644; J2543; J7050; J7507; J7517; P9021